=== PATIENT | male | born 1945 | race Caucasian/White ===

== ENCOUNTER 2025-04-23 01:03 | Emergency (ER) | payer OTHER ==
[2025-04-23 02:49] LABS: Absolute Lymphocytes (CBC) 1.3 K/uL (0.7-4.9); Hematocrit 39.6 % (39.6-49.0); Hemoglobin 13.5 g/dL (13.6-17.9); MCH 30.0 pg (27.0-35.0); MCHC 34.0 g/dL (32.0-36.0); MCV 88.4 fL (80-100); MPV 7.9 fL (7.6-11.3); Nucleated RBC Absolute Count 0.0 (0-0); Nucleated Red Blood Cells % 0.0 % (0-0); PT Prothrombin Time 12.0 SECONDS (10-13.0); Protime INR 1.06; RBC Red Blood Cell Count 4.48 M/uL (4.33-5.43); White Blood Count 6.30 thou/uL (4.3-10.9)
[2025-04-23 03:02] LABS: AST/SGOT 15 U/L (15-37); Albumin 3.8 g/dL (3.4-5.0); Albumin/Globulin Ratio 1.3 (1.1-1.8); Alkaline Phosphatase 69 U/L (45-117); Anion Gap 8.8 mEq/L (5.0-15.0); BUN Blood Urea Nitrogen 30 mg/dL (7-18); Bilirubin Indirect, Calculated 0.4 mg/dL (0.2-0.8); Globulin 3.0 g/dL (2.3-3.5); Glucose Level 98 mg/dL (74-106); Magnesium 2.4 mg/dL (1.6-2.4); NT PRO-BNP 107 pg/mL (<450); Potassium 3.8 mEq/L (3.5-5.1); Troponin High Sensitivity 22.3 pg/mL (<58.9)
[2025-04-23 03:06] LABS: ALT/SGPT < 14 U/L (16-61)
--- NOTE | 2025-04-23 06:10 | EDPHYS ---
Physician Documentation [facility] Name: Imelda Roa Age: 79 yrs Sex: Male : 1945 Arrival Date: 04/23/2025 Time: 01:03 Bed 17 Private MD: ED Physician Tenzin Elias HPI: 04/23 01:38 This 79 yrs old Male presents to ER via Unassigned with complaints of High sp4 Blood Pressure. 19:27 Patient is a very pleasant 79-year-old male who presents with concern of elevated blood sp4 pressure. Blood pressure was reported at home at 190/10. Patient's supply aide Dr. Luo. at [facility] has discontinued his amlodipine and Acebutolol approximately 1 week ago.. Prior to discontinuation patient took amlodipine 5 mg daily and Acebutolol 200 mg daily for his blood pressure. Today's family is concerned about persistent elevation of blood pressure. Patient reports some lightheaded feeling. . Historical: - Allergies: 01:44 Haldol; br2 - PMHx: 01:44 Parkinson's disease; Hypercholesterolemia; br2 01:47 ENLARGED PROSTATE; br2 - Immunization history:: Adult Immunizations up to date. - Infectious Disease History:: Denies. - Social history:: Smoking status: Patient denies any tobacco usage or history of. Patient/guardian denies using alcohol, street drugs. - Family history:: not pertinent. ROS: 19:27 Constitutional: Negative for fever, chills, and weight loss, positive for elevated sp4 blood pressure positive for lightheadedness. 19:27 All other systems are negative, Exam: 19:27 Constitutional: Frail elderly male, no acute distress. Head/Face: Normocephalic, sp4 atraumatic. Eyes: Pupils equal round and reactive to light, extra-ocular motions intact. Lids and lashes normal. Conjunctiva and sclera are not injected. Cornea within normal limits. Periorbital areas with no swelling, redness, or edema. ENT: Nares patent. No nasal discharge, no septal abnormalities noted. Tympanic membranes are normal and external auditory canals are clear. Oropharynx with no redness, swelling, or masses, exudates, or evidence of obstruction, uvula midline. Mucous membranes moist. Neck: Trachea midline, no thyromegaly or masses palpated, and no cervical lymphadenopathy. Supple, full range of motion without nuchal rigidity, or vertebral point tenderness. Chest/axilla: Normal chest wall appearance and motion. Nontender with no deformity. No lesions are appreciated. Cardiovascular: Regular rate and rhythm with a normal S1 and S2. No gallops, murmurs, or rubs. No pulse deficits. Respiratory: Lungs have equal breath sounds bilaterally, clear to auscultation and percussion. No rales, rhonchi or wheezes noted. No increased work of breathing, no retractions or nasal flaring. Abdomen/GI: Soft, with normal bowel sounds. No distension or tympany. No guarding or rebound. No evidence of tenderness throughout. Back: No spinal tenderness. No costovertebral tenderness. Skin: Warm, dry with normal turgor. Normal color with no rashes, no lesions, and no evidence of cellulitis. MS/ Extremity: Pulses equal, no cyanosis. Neurovascular intact. Full, normal range of motion. Neuro: Awake and alert, GCS 15, oriented to person, place, time, and situation. Cranial nerves II-XII grossly intact. Motor strength 5/5 in all extremities. Sensory grossly intact. 19:41 ECG was reviewed by the Attending Physician. EKG at 0 431 04/23/2025 normal sinus sp4 rhythm rate 69 normal EKG. Vital Signs: 01:40 BP 165 / 98; Pulse 73; Resp 18; Pulse Ox 99% on R/A; Weight 69.85 kg; Height 5 ft. 10 br2 in. ; Pain 2/10; 01:50 BP 174 / 80; Pulse 77; Resp 18; Pulse Ox 97% on R/A; Pain 0/10; tb4 03:10 BP 164 / 89; Pulse 74; Resp 18; Pulse Ox 99% on R/A; Pain 0/10; tb4 04:00 BP 177 / 130; Pulse 87; Resp 15; Pulse Ox 97% on R/A; Pain 0/10; tb4 05:00 BP 154 / 124; Pulse 75; Resp 17; Pulse Ox 99% on R/A; Pain 0/10; tb4 06:21 BP 175 / 105; Pulse 67; Resp 17; Pulse Ox 98% on R/A; Pain 0/10; tb4 01:40 Body Mass Index 22.10 (69.85 kg, 177.8 cm) br2 01:40 Pain Scale: Adult br2 01:50 Pain Scale: Adult tb4 03:10 Pain Scale: Adult tb4 04:00 Pain Scale: Adult tb4 05:00 Pain Scale: Adult tb4 06:21 Pain Scale: Adult tb4 Rogerio Coma Score: 19:27 Eye Response: spontaneous(4). Motor Response: obeys commands(6). Verbal Response: sp4 oriented(5). Total: 15. MDM: 01:39 Medical Screening Exam initiated sp4 19:35 Differential diagnosis: hypertensive crisis, Malignant HTN, Uncontrolled hypertension. sp4 Rebound hypertension. Data reviewed: vital signs, nurses notes, lab test result(s), EKG. Consideration of Admission/Observation Escalation of care including admission/observation considered. 04/23 01:39 Order name: Basic Metabolic Panel; Complete Time: 05:55 sp4 04/23 01:39 Order name: CBC with Diff; Complete Time: 05:55 sp4 04/23 01:39 Order name: LFT's; Complete Time: 05:55 sp4 04/23 01:39 Order name: Magnesium; Complete Time: 05:55 sp4 04/23 01:39 Order name: NT PRO-BNP; Complete Time: 05:55 sp4 04/23 01:39 Order name: PT-INR; Complete Time: 05:55 sp4 04/23 01:39 Order name: Troponin HS; Complete Time: 05:55 sp4 04/23 01:39 Order name: EKG; Complete Time: 01:39 sp4 04/23 01:39 Order name: Cardiac monitoring; Complete Time: 04:37 sp4 04/23 01:39 Order name: EKG - Nurse/Tech; Complete Time: 04:37 sp4 04/23 01:39 Order name: IV Saline Lock; Complete Time: 03:09 sp4 04/23 01:39 Order name: Labs collected and sent; Complete Time: 03:09 sp4 04/23 01:39 Order name: O2 Per Protocol; Complete Time: 03:09 sp4 04/23 01:39 Order name: O2 Sat Monitoring; Complete Time: 03:09 sp4 EC:31 Rate is 69 beats/min. Rhythm is regular, Normal Sinus Rhythm. QRS Apex is Normal. GA sp4 interval is normal. QRS interval is normal. QT interval is normal. No Q waves. T waves are Normal. No ST changes noted. Clinical impression: Normal ECG. Interpreted by me. Reviewed by me. Administered Medications: 03:09 Drug: cloNIDine PO 0.1 mg PO once Route: PO; tb4 06:17 Follow up: Response: No adverse reaction; Blood pressure is unchanged tb4 06:17 Drug: cloNIDine PO 0.1 mg PO once Route: PO; tb4 06:53 Follow up: Response: No adverse reaction tb4 Disposition: 19:41 Chart complete. sp4 Disposition Summary: 04/23/25 06:09 Discharge Ordered Problem: new sp4 Symptoms: have improved sp4 Condition: Stable sp4 Diagnosis - Essential (primary) hypertension sp4 - Uncontrolled hypertension sp4 Followup: sp4 - With: Private Physician - When: 5 - 6 days - Reason: Recheck today's complaints Discharge Instructions: - Discharge Summary Sheet sp4 - Hypertension, Adult, [id number] sp4 Forms: - Patient Portal Instructions sp4 Signatures: Dispatcher [employer] Tenzin Elizalde MD MD sp4 Brit Be RN RN br2 Lu Guy RN RN tb4
--- NOTE | 2025-04-23 06:10 | ER ---
Nurse's Notes [facility] Name: Imelda Roa Age: 79 yrs Sex: Male : 1945 Arrival Date: 04/23/2025 Time: 01:03 Bed 17 Private MD: Diagnosis: Essential (primary) hypertension;Uncontrolled hypertension Presentation: 04/23 01:40 Chief complaint: Patient states: HIGH BLOOD PRESSURE... Coronavirus screen: Client br2 denies travel out of the [place] in the last 14 days. Ebola Screen: Patient denies exposure to infectious person. Initial Sepsis Screen: Does the patient meet any 2 criteria? No. Patient's initial sepsis screen is negative. Does the patient have a suspected source of infection? No. Patient's initial sepsis screen is negative. Risk Assessment: Do you want to hurt yourself or someone else? Patient reports no desire to harm self or others. Onset of symptoms was April 22, 2025. 01:40 Method Of Arrival: Ambulatory br2 01:40 Acuity: SHANI 3 br2 Triage Assessment: 01:44 General: Appears in no apparent distress. comfortable, Behavior is calm, cooperative. br2 Pain: Complains of pain in forehead Pain currently is 2 out of 10 on a pain scale. Historical: - Allergies: 01:44 Haldol; br2 - PMHx: 01:44 Parkinson's disease; Hypercholesterolemia; br2 01:47 ENLARGED PROSTATE; br2 - Immunization history:: Adult Immunizations up to date. - Infectious Disease History:: Denies. - Social history:: Smoking status: Patient denies any tobacco usage or history of. Patient/guardian denies using alcohol, street drugs. - Family history:: not pertinent. Screenin:36 [facility] ED Fall Risk Assessment (Adult) History of falling in the last 3 months, tb4 including since admission Yes- single mechanical fall (1 pt) Confusion or Disorientation No (0 pts) Intoxicated or Sedated No (0 pts) Impaired Gait Yes (1 pt) Mobility Assist Device Used Yes (1 pt) Altered Elimination Yes (1 pt) Score/Fall Risk Level 3 or more points = High Risk Oriented to surroundings, Maintained a safe environment, Used ambulatory aids as needed (educated on \T\ assisted with). Abuse screen: Denies threats or abuse. Denies injuries from another. Nutritional screening: No deficits noted. Tuberculosis screening: No symptoms or risk factors identified. Assessment: 02:36 Reassessment: Patient is alert, oriented x 3, equal unlabored respirations, skin tb4 warm/dry/pink. See triage note Patient denies pain at this time. General: Appears in no apparent distress. Behavior is calm, cooperative. Pain: Denies pain. Neuro: Level of Consciousness is awake, alert, obeys commands, Oriented to person, place, time, situation, Special Education Tutor are Moves all extremities. Full function Gait is unsteady, Speech is normal, Facial symmetry appears normal. Respiratory: Airway is patent Trachea midline Respiratory effort is even, unlabored, Respiratory pattern is regular, symmetrical. GI: No signs and/or symptoms were reported involving the gastrointestinal system. : No signs and/or symptoms were reported regarding the genitourinary system. EENT: No signs and/or symptoms were reported regarding the EENT system. Derm: Skin is intact, is fragile, is thin, Skin is moist, Skin is normal, Skin temperature is warm. Musculoskeletal: Circulation, motion, and sensation intact. Range of motion: intact in all extremities, Patient has resting tremors. 03:01 Reassessment: Patient blood pressure remain elevated, however, he remains stable, no tb4 s/s of distress noted. remains at bedside. Vital Signs: 01:40 BP 165 / 98; Pulse 73; Resp 18; Pulse Ox 99% on R/A; Weight 69.85 kg; Height 5 ft. 10 br2 in. ; Pain 2/10; 01:50 BP 174 / 80; Pulse 77; Resp 18; Pulse Ox 97% on R/A; Pain 0/10; tb4 03:10 BP 164 / 89; Pulse 74; Resp 18; Pulse Ox 99% on R/A; Pain 0/10; tb4 04:00 BP 177 / 130; Pulse 87; Resp 15; Pulse Ox 97% on R/A; Pain 0/10; tb4 05:00 BP 154 / 124; Pulse 75; Resp 17; Pulse Ox 99% on R/A; Pain 0/10; tb4 06:21 BP 175 / 105; Pulse 67; Resp 17; Pulse Ox 98% on R/A; Pain 0/10; tb4 01:40 Body Mass Index 22.10 (69.85 kg, 177.8 cm) br2 01:40 Pain Scale: Adult br2 01:50 Pain Scale: Adult tb4 03:10 Pain Scale: Adult tb4 04:00 Pain Scale: Adult tb4 05:00 Pain Scale: Adult tb4 06:21 Pain Scale: Adult tb4 Montgomery Coma Score: 19:27 Eye Response: spontaneous(4). Motor Response: obeys commands(6). Verbal Response: sp4 oriented(5). Total: 15. ED Course: 01:06 Patient arrived in ED. gm2 01:38 Tenzin Elias MD is Attending Physician. sp4 01:44 Triage completed. br2 01:44 Arm band placed on right wrist. br2 02:36 Patient has correct armband on for positive identification. Bed in low position. Call tb4 light in reach. Side rails up X 1. Adult w/ patient. Client placed on continuous cardiac and pulse oximetry monitoring. NIBP monitoring applied. library monitor on. Door closed. 02:36 No provider procedures requiring assistance completed. tb4 02:36 Inserted saline lock: 20 gauge in right antecubital area, using aseptic technique. tb4 Blood collected. Flushed with 10 mL NS. 06:53 IV discontinued, intact, bleeding controlled, No redness/swelling at site. Pressure tb4 dressing applied. 06:54 Provided Education on: Patient and advised by ER provider to resume blood pressure tb4 medication and follow up with primary care provider.. Administered Medications: 03:09 Drug: cloNIDine PO 0.1 mg PO once Route: PO; tb4 06:17 Follow up: Response: No adverse reaction; Blood pressure is unchanged tb4 06:17 Drug: cloNIDine PO 0.1 mg PO once Route: PO; tb4 06:53 Follow up: Response: No adverse reaction tb4 Medication: 02:36 VIS not applicable for this client. tb4 Outcome: 06:09 Discharge ordered by . sp4 06:53 Discharged to home via wheelchair, with family, tb4 06:53 Condition: stable 06:53 Discharge instructions given to patient, family, Instructed on discharge instructions, follow up and referral plans. Demonstrated understanding of instructions, follow-up care, 06:55 Patient left the ED. tb4 Signatures: Tenzin Elias MD MD sp4 Naomy Moreau gm2 Brit Be, RN RN br2 Lu Guy, RN RN tb4
[2025-04-23 13:15] VITALS: BP 175/105; O2SAT 98
== END 2025-04-23 06:55 | disposition home or self-care (01) ==
LOC: ER 01:03
DX: I10 Essential (primary) hypertension (principal); G20.A1 Parkinson's disease without dyskinesia, without mention of fluctuations; E78.00 Pure hypercholesterolemia, unspecified
CPT/HCPCS: 36415; 80048; 80076; 83735; 83880; 84484; 85025; 85610; 93005; 99284